=== PATIENT | female | born 1970 | race African-American/Black ===

== ENCOUNTER 2021-10-06 12:12 | Emergency (ER) | payer OTHER ==
[~2021-10-06 12:12] MED LIST: HEATHER0.35 MG PO; IBUPROFEN800 MG PO; LIPITOR 10MG TA10 MG PO; LOSARTAN-HCTZ1 EAC2 PO; MACROBID100 MG PO; METFORMIN HCL500 MG PO; NAPROXEN500 MG PO; NORCO 5-325 TA1 EACH PO; TYLENOL #31 EACH PO; ZOFRAN4 MG PO
[2021-10-06 15:36] LABS: BASOPHIL 0.2 % (0-2); EOSINOPHIL 0 % (0-5); HCT 42.4 % (37.0-47.0); HGB 13.4 g/dl (12.5-16.0); LYMPHOCYTE 25.5 % (15-48); MCH 27.9 pg (25.0-31.0); MCHC 31.6 g/dL (32.0-36.0); MCV 88.3 fL (78.0-100.0); MPV 10.6 fL (6.0-9.5); NEUTROPHIL 58.1 % (41-80); NRBC 0; PLT 268 K/uL (150-400); RDW 15.9 % (11.5-14.0); WBC 4.7 K/uL (4.0-10.5)
[2021-10-06 16:24] LABS: BUN/CREAT RATIO (CALC) 10.8 RATIO; CREATININE 0.83 mg/dL (0.51-0.95); POTASSIUM 4.5 mmol/L (3.5-5.1)
== END 2021-10-06 17:38 | disposition home or self-care (01) ==
LOC: FER 12:12
PROVIDERS: Nurse Practitioner Family
DX: U07.1 COVID-19 (principal); I10 Essential (primary) hypertension; E11.9 Type 2 diabetes mellitus without complications; J45.909 Unspecified asthma, uncomplicated; Z23 Encounter for immunization; Z88.8 Allergy status to other drugs, medicaments and biological substances; Z79.84 Long term (current) use of oral hypoglycemic drugs; Z79.899 Other long term (current) drug therapy
CPT/HCPCS: 36415; 80048; 85025; J7030; M0243; Q0244